=== PATIENT | male | born 1975 | race Caucasian/White ===

== ENCOUNTER 2016-09-19 23:17 | Emergency (ER) | payer MEDICAID ==
[2016-09-19 23:25] VITALS: BP 157/80
[2016-09-20 00:36] LABS: CHLORIDE,CL 102 mmol/L (101-111); SODIUM,NA 135 mmol/L (135-145)
[2016-09-20] MEDS ORDERED: Ketorolac 30 MG/ML SDV IVPUSH ONE (01:00)
[2016-09-20] MEDS ORDERED: Sodium Chloride 0.9% 1,000 ML IV ONE (01:00)
[2016-09-20] MEDS ORDERED: Ondansetron 4 MG/2 ML SDV IV ONE (01:01)
[2016-09-20] MEDS ORDERED: diphenhydrAMINE 50 MG/ML SDV IVPUSH ONE (01:01)
--- NOTE | 2016-09-20 02:14 | EDM.PDOC ---
ED HPI HEADACHE COMPLAINT - General Chief Complaint: Headache Stated Complaint: HEADACHE W/SHARP PAIN BACK OF HEAD 1WEEK+ Time Seen by Provider: 09/19/16 23:30 Source of Information: Reports: Patient History Limitations: Reports: No limitations - History of Present Illness INITIAL COMMENTS - FREE TEXT/NARRATIVE: c/o headache to left side of head for one week, sensitive to light vision blurry at times, watching tv make headache worse, pain to left side of head , sensitive to touch. No other symptoms Methtrexate decreased one -2 months ago and Humira started at same time Descrobes pain present most of time and sharp stabbing at times. - Related Data Allergies/ADRs: Allergies Allergy/AdvReac Type Severity Reaction Status Date / Time No Known Allergies Allergy Verified 06/18/16 19:01 Home Meds: Home Meds Adalimumab [Humira] 10 mg SQ 06/18/16 [History] Methotrexate 12.5 mg PO WEEKLY 06/18/16 [History] Past Medical History - Past Health History Medical/Surgical History: Denies Medical/Surgical History Genitourinary History: Reports: None Musculoskeletal History: Reports: None Neurological History: Reports: None Psychiatric History: Reports: None Endocrine/Metabolic History: Reports: None Dermatologic History: Reports: Psoriasis - Infectious Disease History Infectious Disease History: Reports: Chicken pox - Past Surgical History GI Surgical History: Reports: Appendectomy Male Surgical History: Reports: None Musculoskeletal Surgical History: Reports: Other (see below) Other Musculoskeletal Surgeries/Procedures:: knee surgery Social & Family History - Family History Family Medical History: Noncontributory - Tobacco Use Smoking Status *Q: Never Smoker Second Hand Smoke Exposure: No - Caffeine Use Caffeine Use: Reports: None - Alcohol Use Days Per Week of Alcohol Use: 0 Number of Drinks Per Day: 4 Total Drinks Per Week: 0 - Recreational Drug Use Recreational Drug Use: No ED ROS GENERAL - Review of Systems Review Of Systems: See Below Constitutional: Reports: no symptoms HEENT: Reports: Vision change (blurry at times with headache) Respiratory: Reports: No Symptoms Cardiovascular: Reports: No symptoms Endocrine: Reports: no symptoms GI/Abdominal: Reports: No symptoms Musculoskeletal: Reports: no symptoms Skin: Reports: no symptoms Neurological: Reports: Dizziness, Headache. Denies: Confusion, Numbness, Tremors, Trouble Speaking, Difficulty Walking, Weakness, Change in Speech Psychiatric: Reports: No symptoms - Physical Exam Exam: See Below Exam Limited By: No limitations General Appearance: alert, anxious, mild distress, obese Eye Exam: bilateral eye: EOMI, PERRL, vision changes Ears: normal external exam, normal canal, hearing grossly normal, normal TMs Nose: normal inspection. No: nasal drainage Throat/Mouth: Normal inspection Head Exam: atraumatic, normocephalic, scalp tenderness (left posterior parietal) . No: facial tenderness, sinus tenderness Neck: normal inspection, supple, non-tender, full range of motion. No: lymphadenopathy (L), lymphadenopathy (R) Respiratory/Chest: no respiratory distress, lungs clear, normal breath sounds Cardiovascular: normal peripheral pulses, regular rate, rhythm GI/Abdominal: normal bowel sounds, soft Neuro Exam (Abbreviated): alert, oriented, CN II-XII intact, normal cognition, no motor/sensory deficits Back Exam: full range of motion Extremities: normal inspection, normal range of motion Psychiatric: anxious Skin Exam: Warm, Dry, Intact, Rash (psoriasis plaques ) Course - Vital Signs Last Recorded V/S: Last Vital Signs Temp 96.4 F 09/19/16 23:22 Pulse 69 09/19/16 23:22 Resp 16 09/19/16 23:22 BP 157/80 H 09/19/16 23:22 Pulse Ox 94 L 09/19/16 23:22 - Orders/Labs/Meds Labs: Laboratory Tests 09/19/16 09/19/16 09/19/16 Range/Units 00:12 00:12 00:12 WBC 11.1 H (5.0-10.0) 10^3/uL RBC 4.31 L (4.6-6.2) 10^6/uL Hgb 14.6 (14.0-18.0) g/dL Hct 42.9 (40.0-54.0) % MCV 99.5 (80-100) fL MCH 33.9 (27.0-34.0) pg MCHC 34.0 (33.0-35.0) g/dL Plt Count 228 (150-450) 10^3/uL Neut % (Auto) 66.4 (42.2-75.2) % Lymph % (Auto) 21.7 (20.5-50.1) % [place] % (Auto) 8.8 H (2-8) % Eos % (Auto) 2.7 (1.0-3.0) % Baso % (Auto) 0.4 (0.0-1.0) % Sodium 135 (135-145) mmol/L Potassium 3.3 L (3.6-5.0) mmol/L Chloride 102 (101-111) mmol/L Carbon Dioxide 28.0 (21.0-31.0) mmol/L Anion Gap 8.3 BUN 14 (7-18) mg/dL Creatinine 0.9 (0.6-1.3) mg/dL Est Cr Clr Drug Dosing 113.78 mL/min Estimated GFR (MDRD) > 60 BUN/Creatinine Ratio 15.55 Glucose 140 H (74-105) mg/dL Calcium 8.5 (8.4-10.2) mg/dl Total Bilirubin 0.7 (0.2-1.0) mg/dL AST 27 (10-42) IU/L ALT 36 (10-60) IU/L Alkaline Phosphatase 51 (42-121) IU/L C-Reactive Protein 1.4 H (0.0-1.3) mg/dL Total Protein 7.2 (6.7-8.2) g/dl Albumin 3.8 (3.2-5.5) g/dl Globulin 3.4 Albumin/Globulin Ratio 1.12 Meds: Medications Discontinued Medications Generic Name Dose Route Start Last Admin Trade Name Freq PRN Reason Stop Dose Admin Diphenhydramine HCl 25 mg 09/20/16 01:01 09/20/16 01:20 Benadryl IVPUSH 09/20/16 01:02 25 mg ONETIME ONE Administration Sodium Chloride 1,000 mls @ 999 mls/hr 09/20/16 01:00 09/20/16 01:17 Normal Saline IV 09/20/16 02:00 999 mls/hr .BOLUS ONE Administration Ketorolac Tromethamine 30 mg 09/20/16 01:00 09/20/16 01:22 Toradol IVPUSH 09/20/16 01:01 30 mg ONETIME ONE Administration Ondansetron HCl 4 mg 09/20/16 01:01 09/20/16 01:17 Zofran IV 09/20/16 01:02 4 mg ONETIME ONE Administration - Re-Assessments/Exams Free Text/Narrative Re-Assessment/Exam: 09/20/16 03:12 H/A pain relieved with medications Departure - Departure Time of Disposition: 02:01 Disposition: Home, Self-Care 01 Condition: good Clinical Impression: Headache Qualifiers: Headache type: unspecified Headache chronicity pattern: acute headache Intractability: not intractable Qualified Code(s): R51 - Headache Instructions: General Headache Without Cause, [id number] Forms: ED Department Discharge Additional Instructions: increase fluids rest today tylenol 650mg every 4 hours as needed follow up with PCP if headache returns
== END 2016-09-20 02:07 | disposition home or self-care (01) ==
LOC: DL.ED 23:17
DX: R51 Headache (principal); L40.0 Psoriasis vulgaris; Z90.49 Acquired absence of other specified parts of digestive tract
CPT/HCPCS: 36415; 70450; 80053; 85025; 86140; 96361; 96374; 96375; 99284; J1200; J1885; J2405; J7030

== ENCOUNTER 2017-05-09 00:40 | Emergency (ER) | payer MEDICAID ==
[2017-05-09 00:49] VITALS: BP 149/77
[2017-05-09] MEDS ORDERED: Ibuprofen 600 MG Tab PO ONE (01:08)
--- NOTE | 2017-05-09 01:08 | EDM.PDOC ---
ED HPI GENERAL MEDICAL PROBLEM - General Chief Complaint: Skin Complaint Stated Complaint: MAY NEED STITCHES [id number] Time Seen by Provider: 05/09/17 00:50 Source of Information: Reports: Patient History Limitations: Reports: No Limitations - History of Present Illness INITIAL COMMENTS - FREE TEXT/NARRATIVE: C/o cut to right hand that continues to bleed after one hour. Reports breaking up two indoor family cats that were fighting and scratched on back and side of right hand. No prior hx of skin infections. 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(s) Right Hand Pain Score (Numeric/FACES): 10 - Related Data Allergies Allergy/AdvReac Type Severity Reaction Status Date / Time No Known Allergies Allergy Verified 06/18/16 19:01 Home Meds: Home Meds Methotrexate 12.5 mg PO WEEKLY 06/18/16 [History] Secukinumab [Cosentyx Pen (2 Pens)] 1 dose SQ ASDIRECTED 05/09/17 [History] Past Medical History - Past Health History Medical/Surgical History: Denies Medical/Surgical History Genitourinary History: Reports: None Musculoskeletal History: Reports: None Neurological History: Reports: None Psychiatric History: Reports: None Endocrine/Metabolic History: Reports: None Dermatologic History: Reports: Psoriasis - Infectious Disease History Infectious Disease History: Reports: Chicken Pox - Past Surgical History Musculoskeletal Surgical History: Reports: Other (See Below) Social & Family History - Family History Family Medical History: Noncontributory - Tobacco Use Smoking Status *Q: Never Smoker Second Hand Smoke Exposure: No - Caffeine Use Caffeine Use: Reports: None - Alcohol Use Days Per Week of Alcohol Use: 0 Number of Drinks Per Day: 4 Total Drinks Per Week: 0 - Recreational Drug Use Recreational Drug Use: No ED ROS GENERAL - Review of Systems Review Of Systems: ROS reveals no pertinent complaints other than HPI. ED EXAM, SKIN/RASH Exam: See Below Exam Limited By: No Limitations General Appearance: Alert, No Apparent Distress Eye Exam: Bilateral Eye: EOMI Ears: Normal External Exam Nose: Normal Inspection Throat/Mouth: Normal Inspection Head: Atraumatic, Normocephalic Neck: Normal Inspection Respiratory/Chest: No Respiratory Distress, Lungs Clear Cardiovascular: Normal Peripheral Pulses, Regular Rate, Rhythm Extremities: Normal Range of Motion Neurological: Alert, Oriented, Normal Cognition Skin: Warm, Wound/Incision (2 1cm superficial scratches to outer forearm, puncture wound medial between thumb and index finger, 2.5cm superficail scratch to back of hand wrist fold, no active bleeding, 1cm laceration superficial scatch back of hand. ) Course - Vital Signs Last Recorded V/S: Last Vital Signs Temp 97.1 F 05/09/17 00:48 Pulse 71 05/09/17 00:48 Resp 20 05/09/17 00:48 BP 149/77 H 05/09/17 00:48 Pulse Ox 93 L 05/09/17 00:48 - Orders/Labs/Meds Meds: Medications Discontinued Medications Generic Name Dose Route Start Last Admin Trade Name Freq PRN Reason Stop Dose Admin Ibuprofen 600 mg 05/09/17 01:08 05/09/17 01:12 Motrin PO 05/09/17 01:09 600 mg ONETIME ONE Administration - Re-Assessments/Exams Free Text/Narrative Re-Assessment/Exam: 05/09/17 01:30 Wound cleansed, steri strip to larger wound dressed with telfa and kerlix Departure - Departure Time of Disposition: 00:57 Disposition: Home, Self-Care 01 Condition: Good Clinical Impression: Cat scratch of hand Qualifiers: Encounter type: initial encounter Laterality: right Qualified Code(s): S60.511A - Abrasion of right hand, initial encounter - Discharge Information Instructions: Laceration Care, Adult, [id number] Forms: ED Department Discharge Additional Instructions: keep area clean, covered monitor for infection, follow up with primary care if redness, warmth or drainage noted
== END 2017-05-09 01:12 | disposition home or self-care (01) ==
LOC: DL.ED 00:40
DX: S61.411A Laceration without foreign body of right hand, initial encounter (principal); S60.511A Abrasion of right hand, initial encounter; S50.819A Abrasion of unspecified forearm, initial encounter; W55.03XA Scratched by cat, initial encounter
CPT/HCPCS: 99282; A9270

== ENCOUNTER 2017-08-04 17:14 | Emergency (ER) | payer MEDICAID ==
[2017-08-04] MEDS: Sodium Chloride 0.9% 10 ML Syringe FLUSH PRN (17:47)
[2017-08-04] MEDS: Albuterol 0.083% 2.5 MG/3 ML Neb Soln NEB ONE (17:49)
--- NOTE | 2017-08-04 17:55 | EDM.PDOC ---
ED HPI GENERAL MEDICAL PROBLEM - General Chief Complaint: Respiratory Problem Stated Complaint: from the clinic Time Seen by Provider: 08/04/17 17:55 Source of Information: Reports: Patient, Provider, RN, RN Notes Reviewed, Other (Clinic provider) History Limitations: Reports: No Limitations - History of Present Illness INITIAL COMMENTS - FREE TEXT/NARRATIVE: Pt presents to the ER from the [facility], with provider CHAN Epperson. Patient is hand carrying labs that were completed today. Pt states he began feeling dizzy, cough, and chest pain with cough, SOB on Monday. He states he has progressively been feeling worse since Monday. He admits to hx of asthma. Karyn states the patient's D-Dimer was [phone] at the clinic. Pt states he has been chilling quite a bit and has been running a low grade fever for a few days. Onset: Gradual Location: Reports: Chest, Abdomen Quality: Reports: Sharp, Stabbing Severity: Moderate Improves with: Reports: None Worsens with: Reports: Movement Associated Symptoms: Reports: Chest Pain (with cough), Cough, Fever/Chills, Headaches, Nausea/Vomiting, Shortness of Breath Right Chest Pain Score (Numeric/FACES): 5 - Related Data Allergies Allergy/AdvReac Type Severity Reaction Status Date / Time No Known Allergies Allergy Verified 06/18/16 19:01 Home Meds: Home Meds Methotrexate 12.5 mg PO WEEKLY 06/18/16 [History] Secukinumab [Cosentyx Pen (2 Pens)] 1 dose SQ ASDIRECTED 05/09/17 [History] Albuterol [Proair HFA] 2 puff INH Q6HR PRN 08/04/17 [History] Fluticasone/Salmeterol [Advair 250-50 Diskus] 2 puff INH DAILY 08/04/17 [History ] Folic Acid [Folic Acid] 1 tab PO DAILY 08/04/17 [History] Omeprazole [Omeprazole] 1 tab PO DAILY 08/04/17 [History] Past Medical History - Past Health History Medical/Surgical History: Denies Medical/Surgical History HEENT History: Reports: None Cardiovascular History: Reports: None Respiratory History: Reports: Asthma, Sleep Apnea Gastrointestinal History: Reports: GERD Genitourinary History: Reports: None Musculoskeletal History: Reports: None Neurological History: Reports: Concussion Psychiatric History: Reports: None Endocrine/Metabolic History: Reports: None Hematologic History: Reports: None Immunologic History: Reports: None Oncologic (Cancer) History: Reports: None Dermatologic History: Reports: Psoriasis - Infectious Disease History Infectious Disease History: Reports: Chicken Pox - Past Surgical History Cardiovascular Surgical History: Reports: None GI Surgical History: Reports: Appendectomy, Hernia Repair/Other Musculoskeletal Surgical History: Reports: Arthroscopic Knee Social & Family History - Family History Family Medical History: Noncontributory - Tobacco Use Smoking Status *Q: Never Smoker Second Hand Smoke Exposure: No - Caffeine Use Caffeine Use: Reports: None - Alcohol Use Days Per Week of Alcohol Use: 0 Number of Drinks Per Day: 4 Total Drinks Per Week: 0 - Recreational Drug Use Recreational Drug Use: No ED ROS GENERAL - Review of Systems Review Of Systems: ROS reveals no pertinent complaints other than HPI. ED EXAM, GENERAL - Physical Exam Exam: See Below Exam Limited By: No Limitations General Appearance: Alert, WD/WN, Mild Distress Eye Exam: Bilateral Eye: EOMI, Normal Inspection, PERRL Ears: Normal External Exam, Hearing Grossly Normal Nose: Normal Inspection Throat/Mouth: Normal Inspection, Normal Voice, No Airway Compromise Head: Atraumatic, Normocephalic Neck: Normal Inspection, Supple, Non-Tender, Full Range of Motion Respiratory/Chest: No Respiratory Distress, No Accessory Muscle Use, Decreased Breath Sounds, Wheezing, Other (pain in chest with cough) Cardiovascular: Normal Peripheral Pulses, Regular Rate, Rhythm, No Edema, No Gallop, No JVD, No Murmur, No Rub Peripheral Pulses: 2+: Radial (L), Radial (R) GI/Abdominal: Normal Bowel Sounds, Soft, Non-Tender, No Distention (Male) Exam: Deferred Rectal (Males) Exam: Deferred Back Exam: Normal Inspection, Full Range of Motion Extremities: Normal Inspection, Normal Range of Motion, Non-Tender, No Pedal Edema, Normal Capillary Refill Neurological: Alert, Oriented, CN II-XII Intact, Normal Cognition, Normal Gait, Normal Reflexes, No Motor/Sensory Deficits Psychiatric: Normal Affect, Normal Mood Skin Exam: Warm, Dry, Intact, Normal Color, No Rash Lymphatic: No Adenopathy EKG INTERPRETATION EKG Date: 08/04/17 Time: 17:36 Rhythm: NSR Rate (Beats/Min): 72 [place]: Normal P-Wave: Present QRS: Normal ST-T: Normal QT: Normal Comparison: NA - No Prior EKG Course - Vital Signs Last Recorded V/S: Last Vital Signs Temp Pulse 70 08/04/17 17:49 Resp BP Pulse Ox 97 08/04/17 17:37 - Orders/Labs/Meds Orders: Active Orders 24 hr Category Date Time Status EKG Documentation Completion [RC] STAT Care 08/04/17 17:19 Active Peripheral IV Care [RC] . DIRECTED Care 08/04/17 17:28 Active RT Aerosol Therapy [RC] ASDIRECTED Care 08/04/17 17:37 Active Chest w Cont [CT] Urgent Exams 08/04/17 17:26 Taken Sodium Chloride 0.9% [Saline Flush] Med 08/04/17 17:28 Active 10 ml FLUSH ASDIRECTED PRN Peripheral IV Insertion Adult [OM.PC] Stat Oth 08/04/17 17:28 Ordered Medication Orders Sodium Chloride (Saline Flush) 10 ml FLUSH ASDIRECTED PRN PRN Reason: Keep Vein Open Last Admin: 08/04/17 17:47 Dose: 10 ml Labs: Laboratory Tests 08/04/17 08/04/17 Range/Units 20:00 20:23 Amylase 64 (28-100) U/L Lipase 22 (22-51) U/L Urine Color Dark yellow (YELLOW) Urine Appearance Clear (CLEAR) Urine pH 5.5 (5.0-9.0) Ur Specific [place] 1.025 (1.005-1.030) Urine Protein Trace H (NEGATIVE) Urine Glucose (UA) Negative (NEGATIVE) Urine Ketones Negative (NEGATIVE) Urine Occult Blood Negative (NEGATIVE) Urine Nitrite Negative (NEGATIVE) Urine Bilirubin Negative (NEGATIVE) Urine Urobilinogen 1.0 (0.2-1.0) mg/dL Ur Leukocyte Esterase Negative (NEGATIVE) Urine RBC 0-5 /HPF Urine WBC 0-5 (0-5/HPF) /HPF Ur Epithelial Cells Few /HPF Urine Bacteria Few (0-FEW/HPF) /HPF Urine Mucus Moderate H /LPF Meds: Medications Generic Name Dose Route Start Last Admin Trade Name Freq PRN Reason Stop Dose Admin Sodium Chloride 10 ml 08/04/17 17:28 08/04/17 17:47 Saline Flush FLUSH 10 ml ASDIRECTED PRN Administration Keep Vein Open Discontinued Medications Generic Name Dose Route Start Last Admin Trade Name Freq PRN Reason Stop Dose Admin Albuterol 2.5 mg 08/04/17 17:37 08/04/17 17:49 Proventil Neb Soln NEB 08/04/17 17:38 2.5 mg ONETIME ONE Administration Sodium Chloride 1,000 mls @ 999 mls/hr 08/04/17 17:38 08/04/17 18:32 Normal Saline IV 08/04/17 18:38 999 mls/hr .BOLUS ONE Administration Sodium Chloride 1,000 mls @ 999 mls/hr 08/04/17 19:37 08/04/17 19:41 Normal Saline IV 08/04/17 20:37 999 mls/hr .BOLUS ONE Administration Iopamidol 100 ml 08/04/17 17:27 08/04/17 18:34 Isovue-370 (76%) IVPUSH 08/04/17 17:28 83 ml ONETIME ONE Administration Ondansetron HCl 4 mg 08/04/17 19:43 08/04/17 20:10 Zofran IV 08/04/17 19:44 4 mg ONETIME ONE Administration - Radiology Interpretation Free Text/Narrative:: Chest CT with contrast: No acute cardiopulmonary process. Moderate fatty infiltration of the visualized liver See rad report Departure - Departure Time of Disposition: 21:02 Disposition: Home, Self-Care 01 Condition: Fair Clinical Impression: Upper respiratory infection, viral - Discharge Information Instructions: Shortness of Breath, Adult, [id number], Viral Respiratory Infection, [id number], Upper Respiratory Infection, Adult, [id number] Referrals: Karyn Fairchild [Primary Care Provider] - Forms: ED Department Discharge Additional Instructions: Drink plenty of fluids Follow up with your primary care facility Tylenol or ibuprofen as directed for pain - My Orders Last 24 Hours: My Active Orders 08/04/17 17:19 EKG Documentation Completion [RC] STAT 08/04/17 17:26 Chest w Cont [CT] Urgent 08/04/17 17:28 Peripheral IV Care [RC] . DIRECTED Sodium Chloride 0.9% [Saline Flush] 10 ml FLUSH ASDIRECTED PRN Peripheral IV Insertion Adult [OM.PC] Stat 08/04/17 17:37 RT Aerosol Therapy [RC] ASDIRECTED - Assessment/Plan Last 24 Hours: My Active Orders 08/04/17 17:19 EKG Documentation Completion [RC] STAT 08/04/17 17:26 Chest w Cont [CT] Urgent 08/04/17 17:28 Peripheral IV Care [RC] . DIRECTED Sodium Chloride 0.9% [Saline Flush] 10 ml FLUSH ASDIRECTED PRN Peripheral IV Insertion Adult [OM.PC] Stat 08/04/17 17:37 RT Aerosol Therapy [RC] ASDIRECTED
[2017-08-04] MEDS: Sodium Chloride 0.9% 1,000 ML IV ONE ×2 (18:32→19:41)
[2017-08-04] MEDS: Iopamidol 755 Mg/ML 100 ML Bottle IVPUSH ONE (18:34)
[2017-08-04] MEDS: Ondansetron 4 MG/2 ML SDV IV ONE (20:10)
== END 2017-08-04 21:16 | disposition home or self-care (01) ==
LOC: DL.ED 17:14
DX: J06.9 Acute upper respiratory infection, unspecified (principal); Z79.899 Other long term (current) drug therapy
CPT/HCPCS: 36415; 71260; 81001; 82150; 83690; 93005; 94640; 96365; 96366; 96375; 99285; J2405; J7030; J7050; J7620; Q9967

== ENCOUNTER 2018-02-19 22:00 | Emergency (ER) | payer MEDICAID ==
[2018-02-19] MEDS ORDERED: Cyclobenzaprine 10 MG Tab PO ONE (22:01)
[2018-02-19] MEDS ORDERED: Acetaminophen/HYDROcodone 325-10 MG Tab PO ONE (22:01)
[2018-02-19] MEDS ORDERED: HYDROmorphone 1 MG/ML Syringe IVPUSH ONE (22:22)
[2018-02-19] MEDS ORDERED: Ondansetron 4 MG/2 ML SDV IV ONE (22:22)
[2018-02-19] MEDS ORDERED: Iopamidol 612 MG/ML 100 ML Bottle IVPUSH ONE (22:30)
[2018-02-19 22:38] VITALS: BP 142/88
[2018-02-19 22:59] LABS: ANION GAP 12.3; CHLORIDE,CL 100 mmol/L (101-111); SODIUM,NA 140 mmol/L (135-145)
[2018-02-20] MEDS ORDERED: Cyclobenzaprine 10 MG Tab ONE (00:24)
[2018-02-20] MEDS ORDERED: Acetaminophen/HYDROcodone 325-10 MG Tab ONE (00:24)
--- NOTE | 2018-02-20 00:56 | EDM.PDOC ---
ED HPI GENERAL MEDICAL PROBLEM - General Chief Complaint: Back Pain or Injury Stated Complaint: FELL OFF OF A LADDER [id number] Time Seen by Provider: 02/19/18 22:30 Source of Information: Reports: Patient History Limitations: Reports: No Limitations - History of Present Illness INITIAL COMMENTS - FREE TEXT/NARRATIVE: ED ambulatory c/o left rib pain, low back after falling from top of 8 foot ladder [id number]. states fell backwards and to left side, onto wooden steps and broke one with fall. hit forehead on sidewalk no loss of consciousness. Has had no nausea or vomiting, no weakness . Chronic tingling of right hand, unchanged. Left Thoracic Pain Score (Numeric/FACES): 9 - Related Data Allergies Allergy/AdvReac Type Severity Reaction Status Date / Time No Known Allergies Allergy Verified 02/19/18 22:09 Home Meds: Home Meds Methotrexate 12.5 mg PO WEEKLY 06/18/16 [History] Secukinumab [Cosentyx Pen (2 Pens)] 1 dose SQ ASDIRECTED 05/09/17 [History] Albuterol [Proair HFA] 2 puff INH Q6HR PRN 08/04/17 [History] Fluticasone/Salmeterol [Advair 250-50 Diskus] 2 puff INH DAILY 08/04/17 [History ] Folic Acid 1 tab PO DAILY 08/04/17 [History] Omeprazole 1 tab PO DAILY 08/04/17 [History] Sertraline [Zoloft] 50 mg PO DAILY 02/19/18 [History] Past Medical History - Past Health History Medical/Surgical History: Denies Medical/Surgical History HEENT History: Reports: None Cardiovascular History: Reports: None Respiratory History: Reports: Asthma, Sleep Apnea Gastrointestinal History: Reports: GERD Genitourinary History: Reports: None Musculoskeletal History: Reports: None Neurological History: Reports: Concussion Psychiatric History: Reports: None Endocrine/Metabolic History: Reports: None Hematologic History: Reports: None Immunologic History: Reports: None Oncologic (Cancer) History: Reports: None Dermatologic History: Reports: Psoriasis - Infectious Disease History Infectious Disease History: Reports: Chicken Pox - Past Surgical History Cardiovascular Surgical History: Reports: None GI Surgical History: Reports: Appendectomy, Hernia Repair/Other Musculoskeletal Surgical History: Reports: Arthroscopic Knee Social & Family History - Family History Family Medical History: Noncontributory - Tobacco Use Smoking Status *Q: Unknown Ever Smoked - Caffeine Use Caffeine Use: Reports: Soda - Recreational Drug Use Recreational Drug Use: No ED ROS GENERAL - Review of Systems Review Of Systems: See Below Constitutional: Reports: No Symptoms HEENT: Reports: No Symptoms Respiratory: Reports: Other (pain left ribs hurts to take deep breath) Cardiovascular: Reports: No Symptoms GI/Abdominal: Reports: Abdominal Pain (upper left below ribs) : Reports: No Symptoms Musculoskeletal: Reports: Neck Pain, Back Pain Skin: Reports: Bruising (inner right upper arm) Neurological: Reports: No Symptoms ED EXAM,LOWER BACK PAIN/INJURY - Physical Exam Exam: See Below Exam Limited By: No Limitations General Appearance: Alert, Mild Distress, Obese (morbid) Eye Exam: Bilateral Eye: EOMI, PERRL Ears: Normal External Exam, Normal TMs Nose: Normal Inspection Throat/Mouth: Normal Inspection, Normal Lips, Normal Voice, No Airway Compromise Head: Atraumatic, Normocephalic Neck: Full Range of Motion, Tender Lateral (right) Respiratory/Chest: No Respiratory Distress, Lungs Clear, Other (left lower rib pain with alpation and movment) Cardiovascular: Normal Peripheral Pulses, Regular Rate, Rhythm GI/Abdominal: Normal Bowel Sounds, Soft, Non-Tender Back Exam: Muscle Spasm, Paraspinal Tenderness (lumbar), Vertebral Tenderness ( low thoracic mid lumbar) Extremities: Normal Inspection, Normal Capillary Refill Neurological: Alert, Normal Mood/Affect, CN II-XII Intact, Normal Plantar Flexion, No Motor/Sensory Deficits, Oriented x 3 Psychiatric: Normal Affect Skin Exam: Warm, Dry, Intact, Ecchymosis (3x1cm bruising right upper inner arm) Course - Vital Signs Last Recorded V/S: Last Vital Signs Temp 98.2 F 02/19/18 22:30 Pulse 64 02/19/18 22:30 Resp 20 02/19/18 22:30 BP 142/88 H 02/19/18 22:30 Pulse Ox 94 L 02/19/18 22:30 - Orders/Labs/Meds Orders: Active Orders 24 hr Category Date Time Status UA W/MICROSCOPIC [URIN] Stat Lab 02/20/18 00:20 Ordered Labs: Laboratory Tests 02/19/18 02/19/18 02/19/18 Range/Units 22:25 22:25 22:25 WBC 9.3 (5.0-10.0) 10^3/uL RBC 4.43 L (4.6-6.2) 10^6/uL Hgb 14.6 (14.0-18.0) g/dL Hct 44.1 (40.0-54.0) % MCV 99.5 (80-100) fL MCH 33.0 (27.0-34.0) pg MCHC 33.1 (33.0-35.0) g/dL Plt Count 243 (150-450) 10^3/uL Neut % (Auto) 57.3 (42.2-75.2) % Lymph % (Auto) 26.7 (20.5-50.1) % [place] % (Auto) 10.0 H (2-8) % Eos % (Auto) 5.6 H (1.0-3.0) % Baso % (Auto) 0.4 (0.0-1.0) % PT 10.0 (9.0-12.0) SEC INR 1.0 (0.9-1.2) Sodium 140 (135-145) mmol/L Potassium 4.3 (3.6-5.0) mmol/L Chloride 100 L (101-111) mmol/L Carbon Dioxide 32.0 H (21.0-31.0) mmol/L Anion Gap 12.3 BUN 14 (7-18) mg/dL Creatinine 0.9 (0.6-1.3) mg/dL Est Cr Clr Drug Dosing 112.65 mL/min Estimated GFR (MDRD) > 60 BUN/Creatinine Ratio 15.55 Glucose 92 (74-105) mg/dL Calcium 8.8 (8.4-10.2) mg/dl Total Bilirubin 0.9 (0.2-1.0) mg/dL AST 32 (10-42) IU/L ALT 44 (10-60) IU/L Alkaline Phosphatase 62 (42-121) IU/L Total Protein 7.9 (6.7-8.2) g/dl Albumin 4.1 (3.2-5.5) g/dl Globulin 3.8 Albumin/Globulin Ratio 1.08 Amylase 70 (28-100) U/L Lipase 30 (22-51) U/L Urine Color (YELLOW) Urine Appearance (CLEAR) Urine pH (5.0-9.0) Ur Specific [place] (1.005-1.030) Urine Protein (NEGATIVE) Urine Glucose (UA) (NEGATIVE) Urine Ketones (NEGATIVE) Urine Occult Blood (NEGATIVE) Urine Nitrite (NEGATIVE) Urine Bilirubin (NEGATIVE) Urine Urobilinogen (0.2-1.0) mg/dL Ur Leukocyte Esterase (NEGATIVE) Urine RBC /HPF Urine WBC (0-5/HPF) /HPF Ur Epithelial Cells /HPF Calcium Oxalate Crystal /HPF Amorphous Sediment (0/HPF) /HPF Urine Bacteria (0-FEW/HPF) /HPF Urine Mucus /LPF 02/20/18 Range/Units 00:20 WBC (5.0-10.0) 10^3/uL RBC (4.6-6.2) 10^6/uL Hgb (14.0-18.0) g/dL Hct (40.0-54.0) % MCV (80-100) fL MCH (27.0-34.0) pg MCHC (33.0-35.0) g/dL Plt Count (150-450) 10^3/uL Neut % (Auto) (42.2-75.2) % Lymph % (Auto) (20.5-50.1) % [place] % (Auto) (2-8) % Eos % (Auto) (1.0-3.0) % Baso % (Auto) (0.0-1.0) % PT (9.0-12.0) SEC INR (0.9-1.2) Sodium (135-145) mmol/L Potassium (3.6-5.0) mmol/L Chloride (101-111) mmol/L Carbon Dioxide (21.0-31.0) mmol/L Anion Gap BUN (7-18) mg/dL Creatinine (0.6-1.3) mg/dL Est Cr Clr Drug Dosing mL/min Estimated GFR (MDRD) BUN/Creatinine Ratio Glucose (74-105) mg/dL Calcium (8.4-10.2) mg/dl Total Bilirubin (0.2-1.0) mg/dL AST (10-42) IU/L ALT (10-60) IU/L Alkaline Phosphatase (42-121) IU/L Total Protein (6.7-8.2) g/dl Albumin (3.2-5.5) g/dl Globulin Albumin/Globulin Ratio Amylase (28-100) U/L Lipase (22-51) U/L Urine Color Yellow (YELLOW) Urine Appearance Clear (CLEAR) Urine pH 5.0 (5.0-9.0) Ur Specific [place] 1.010 (1.005-1.030) Urine Protein Negative (NEGATIVE) Urine Glucose (UA) Negative (NEGATIVE) Urine Ketones Negative (NEGATIVE) Urine Occult Blood Negative (NEGATIVE) Urine Nitrite Negative (NEGATIVE) Urine Bilirubin Negative (NEGATIVE) Urine Urobilinogen 0.2 (0.2-1.0) mg/dL Ur Leukocyte Esterase Negative (NEGATIVE) Urine RBC 0-5 /HPF Urine WBC 0-5 (0-5/HPF) /HPF Ur Epithelial Cells Rare /HPF Calcium Oxalate Crystal Rare /HPF Amorphous Sediment Rare (0/HPF) /HPF Urine Bacteria Rare (0-FEW/HPF) /HPF Urine Mucus Rare /LPF Meds: Medications Discontinued Medications Generic Name Dose Route Start Last Admin Trade Name Alonzo PRN Reason Stop Dose Admin Hydrocodone Bitart/Acetaminophen Confirm 02/20/18 00:24 [place] 325-10 Mg Administered 02/20/18 00:25 Dose 2 tab .ROUTE .STK-MED ONE Cyclobenzaprine HCl Confirm 02/20/18 00:24 Flexeril Administered 02/20/18 00:25 Dose 10 mg .ROUTE .STK-MED ONE Hydromorphone HCl 1 mg 02/19/18 22:22 02/19/18 23:06 Dilaudid IVPUSH 02/19/18 22:23 1 mg ONETIME ONE Administration Iopamidol 100 ml 02/19/18 22:30 02/19/18 23:36 Isovue-300 (61%) IVPUSH 02/19/18 22:31 100 ml ONETIME ONE Administration Ondansetron HCl 4 mg 02/19/18 22:22 02/19/18 23:05 Zofran IV 02/19/18 22:23 4 mg ONETIME ONE Administration - Radiology Interpretation Free Text/Narrative:: CT chest abdomen pelvis, thoracic, cervical and lumbar negative for acute findings. No fractures or dislocations Departure - Departure Time of Disposition: 00:54 Disposition: Home, Self-Care 01 Condition: Good Clinical Impression: Rib pain on left side, Back pain due to injury Contusion Qualifiers: Encounter type: initial encounter Contusion area: upper arm Laterality: right Qualified Code(s): S40.021A - Contusion of right upper arm, initial encounter Fall from ladder Qualifiers: Encounter type: initial encounter Qualified Code(s): W11.XXXA - Fall on and from ladder, initial encounter - Discharge Information Instructions: Back Pain, Adult, [id number] Forms: ED Department Discharge Additional Instructions: incentive spirometer every 2 hours while awake rest today flexeril 10mg every 8 hours as needed for spasm hydrocodone 10/325 one every 6 hours as needed for severe pain ibuprofen 600mg every 6 hours as needed for moderate pain follow up if weakness, difficulty breathing, dizzainess or uncontrolled pain - My Orders Last 24 Hours: My Active Orders 02/20/18 00:20 UA W/MICROSCOPIC [URIN] Stat - Assessment/Plan Last 24 Hours: My Active Orders 02/20/18 00:20 UA W/MICROSCOPIC [URIN] Stat
== END 2018-02-20 01:15 | disposition home or self-care (01) ==
LOC: DL.ED 22:00
DX: S40.021A Contusion of right upper arm, initial encounter (principal); R07.81 Pleurodynia; M54.5 Low back pain; K21.9 Gastro-esophageal reflux disease without esophagitis; Z79.899 Other long term (current) drug therapy; W11.XXXA Fall on and from ladder, initial encounter
CPT/HCPCS: 36415; 71260; 72125; 72128; 72131; 74177; 80053; 81001; 82150; 83690; 85025; 85610; 96374; 96375; 99284; J1170; J2405; Q9967; A9270-GY

== ENCOUNTER 2019-02-07 06:38 | Day surgery (SDC) | payer MEDICAID ==
[~2019-02-07 06:38] MED LIST: Dextrose 5%-0.45% NaCl 1,000 ML IV SCH; Midazolam 1 MG/ML 2 ML SDV ONE; Sodium Chloride 0.9% 10 ML Syringe FLUSH PRN; fentaNYL 100 MCG/2 ML SDV ONE
[2019-02-07] MEDS ORDERED: fentaNYL 100 MCG/2 ML SDV IV ONE ×3 (06:39→07:44)
[2019-02-07] MEDS ORDERED: Midazolam 1 MG/ML 2 ML SDV IV ONE ×3 (06:39→07:45)
[2019-02-07 11:27] VITALS: BP 150/86
--- NOTE | 2019-02-07 13:36 | OR ---
DATE: 02/07/2019 PROCEDURE PERFORMED: Esophagogastroduodenoscopy and multiple pinch biopsies. INSTRUMENT USED: [id number] Olympus video panendoscope. PREMEDICATIONS: No oral or topical anesthesia used. Fentanyl 100 mcg intravenous, Versed 2 mg intravenous. Nasal O2 cannula. The procedure was done under pulse oximetry, BP recording, and flame channeler. INDICATION: The patient with long-standing heartburn and dependent on PPI. Esophagogastroduodenoscopy is performed for detection of any active erosive lesions, Mitchell esophagus and/or malignancy also under consideration, H. pylori status to be determined, endoscopic hemostasis therapy if needed. PROCEDURE IN DETAIL: The scope was passed with ease. Adequate visualization of the esophagus was made from proximal to distal areas. No upper esophageal lesions identified. No distal esophageal stricture, no uphill or downhill esophageal varices. No Blaire-Frazier tear. No evidence of erosive esophagitis by [place] criteria. No esophageal polyp or tumor mass identified. Z-line was seen at around 40 cm distal to the oral verge, configuration consistent with grade 1 by ZAP classification. No proximal gastric varices noted. Gastric fundus examination by retroflexion showed no polypoid lesions. No gastric ulcer, malignant mass, or vascular ectasia identified. Duodenal bulb showed no ulcer. Visualized second part of the duodenum was unremarkable. Multiple pinch biopsies were taken from the gastric antrum and proximal body and sent for PyloriTek test for H. pylori, and if negative in an hour, the tissue is to be sent for histopathology. No bleeding was noted from any of the visualized areas at the completion of examination. Photographs were taken of the duodenal bulb, gastric antrum, fundus, and distal esophagus. IMPRESSION: Normal study. The patient tolerated the procedure well. [facility] /[id number]
== END 2019-02-07 09:57 | disposition home or self-care (01) ==
LOC: DL.ENDO 06:38
PROVIDERS: ATTEND Internal Medicine Gastroenterology
DX: K29.50 Unspecified chronic gastritis without bleeding (principal); R12 Heartburn; E66.01 Morbid (severe) obesity due to excess calories; G47.33 Obstructive sleep apnea (adult) (pediatric); L40.9 Psoriasis, unspecified; Z87.891 Personal history of nicotine dependence; Z68.43 Body mass index [BMI] 50.0-59.9, adult
CPT/HCPCS: 43239; 87077; J2250; J3010; J7042

== ENCOUNTER 2020-10-26 22:13 | Emergency (ER) | payer MEDICAID ==
[2020-10-26] MEDS ORDERED: Aspirin 81 MG Tab.Chew PO ONE (22:20)
[2020-10-26] MEDS ORDERED: Morphine 4 MG/ML Syringe IM ONE (23:00)
[2020-10-26] MEDS ORDERED: Morphine 2 MG/ML SYRINGE IVPUSH ONE (23:02)
[2020-10-26] MEDS ORDERED: Ondansetron 4 MG/2 ML SDV IVPUSH ONE (23:03)
[2020-10-26 23:06] LABS: ANION GAP 10.9 mEq/L (7-13); CHLORIDE,CL 100 mmol/L (98-107); SODIUM,NA 137 mmol/L (136-145)
--- NOTE | 2020-10-26 23:20 | CR ---
PROCEDURE INFORMATION: Exam: XR Chest Exam date and time: 10/26/2020 10:42 PM Age: 45 years old Clinical indication: Pain; Left-sided; Additional info: Chest pain TECHNIQUE: Imaging protocol: XR of the chest. Views: 1 view. COMPARISON: CT Chest Abdomen Pelvis w Cont 02/19/2018 10:40 PM FINDINGS: Lungs: Unremarkable. No consolidation. Pleural spaces: Unremarkable. No pleural effusion. No pneumothorax. Heart/Mediastinum: Unremarkable. No cardiomegaly. Bones/joints: Unremarkable. IMPRESSION: No acute findings.
[2020-10-26] MEDS ORDERED: Ketorolac 30 MG/ML SDV IVPUSH ONE (23:56)
[2020-10-27 01:49] VITALS: BP 133/64; PULSE 71
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
== END 2020-10-27 03:46 | disposition home or self-care (01) ==
LOC: DL.ED 22:13
DX: R07.89 Other chest pain (principal); R73.9 Hyperglycemia, unspecified; E66.9 Obesity, unspecified; Z68.43 Body mass index [BMI] 50.0-59.9, adult
CPT/HCPCS: 36415; 71045; 80053; 83735; 83880; 84484; 85025; 85379; 85610; 93005; 96374; 96375; 99283; 99285-25; A9270-GY; J1885; J2270; J2405

== ENCOUNTER 2020-11-03 16:30 | Emergency (ER) | payer MEDICAID ==
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
--- NOTE | 2020-11-03 17:17 | CR ---
EXAMINATION: Knee 1V or 2V Rt SEX: Male AGE: 45 years CLINICAL HISTORY: 45-year-old male 5 foot fall from ladder. Right knee pain. Interpretation: Early arthritic degenerative changes i.e. reactive sclerosis and tiny spur formation patellofemoral surface of patella and tibial plateau. No joint effusion, right knee fracture, dislocation or radiopaque loose joint body. No foreign bodies. CONCLUSION: Osteoarthritis. No fractures.
--- NOTE | 2020-11-03 17:25 | CR ---
EXAMINATION: Shoulder Comp Lt SEX: Male AGE: 45 years CLINICAL HISTORY: 45-year-old obese male injured in fall from ladder (5 feet). Left shoulder pain. Interpretation: (Technically difficult exam due to patient body habitus and portable digital techniques) No sign of left shoulder fracture. No gross glenohumeral dislocation or acromioclavicular separation, however, recommend patient be reexamined in the radiology department. No foreign bodies.
--- NOTE | 2020-11-03 18:48 | CT ---
PROCEDURE INFORMATION: Exam: CT Left Upper Extremity Without Contrast, Shoulder Exam date and time: 11/03/2020 6:18 PM Age: 45 years old Clinical indication: Injury or trauma; Fall; Blunt trauma (contusions or hematomas); Shoulder; Left; Additional info: Left shoulder pain TECHNIQUE: Imaging protocol: CT of the Left upper extremity without contrast was performed. Exam focused on the shoulder. Radiation optimization: All CT scans at this facility use at least one of these dose optimization techniques: automated exposure control; mA and/or kV adjustment per patient size (includes targeted exams where dose is matched to clinical indication); or iterative reconstruction. COMPARISON: CR Shoulder Comp Lt 11/03/2020 4:53 PM FINDINGS: Bones/joints: Minimally displaced linear fracture to the humeral head, involving predominantly the greater tuberosity. No other acutely displaced fractures are identified. There is no evidence of dislocation. No aggressive osseous lesions. Visualized chest is unremarkable. Soft tissues: Mild soft tissue swelling around the left shoulder. IMPRESSION: Minimally displaced linear/comminuted fracture to the humeral head, involving predominantly the greater tuberosity.
[2020-11-03 18:56] VITALS: BP 126/64; PULSE 70
== END 2020-11-03 19:22 | disposition home or self-care (01) ==
LOC: DL.ED 16:30
DX: S42.292A Other displaced fracture of upper end of left humerus, initial encounter for closed fracture (principal); S80.01XA Contusion of right knee, initial encounter; E66.9 Obesity, unspecified; Z68.43 Body mass index [BMI] 50.0-59.9, adult; W11.XXXA Fall on and from ladder, initial encounter
CPT/HCPCS: 73030-LT; 73200-LT; 73560-RT; 99284-25

== ENCOUNTER 2021-02-17 15:21 | Emergency (ER) | payer MEDICAID ==
[2021-02-17 15:48] VITALS: BP 144/79; PULSE 63
[2021-02-17] MEDS ORDERED: Sodium Chloride 0.9% 10 ML Syringe FLUSH PRN (15:52)
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
[2021-02-17 16:34] LABS: HEMOGLOBIN A1C 10.8 % (<5.7)
[2021-02-17 16:37] LABS: AMPHETAMINES,URINE NEGATIVE (NEGATIVE); BARBITURATES,URINE NEGATIVE (NEGATIVE); BENZODIAZEPINE,URINE NEGATIVE (NEGATIVE); MDMA (ECSTASY), URINE NEGATIVE (NEGATIVE); METHADONE,URINE NEGATIVE (NEGATIVE); METHAMPHETAMINES,URINE NEGATIVE (NEGATIVE); OPIATES,URINE NEGATIVE (NEGATIVE); OXYCODONE,URINE NEGATIVE (NEGATIVE); PHENCYCLIDINE,URINE NEGATIVE (NEGATIVE); TCA,URINE NEGATIVE (NEGATIVE)
[2021-02-17 16:43] LABS: ANION GAP 10.2 mEq/L (7-13); CHLORIDE,CL 98 mmol/L (98-107); SODIUM,NA 134 mmol/L (136-145)
[2021-02-17] MEDS ORDERED: metFORMIN 500 MG Tab PO ONE (17:02)
== END 2021-02-17 17:26 | disposition home or self-care (01) ==
LOC: DL.ED 15:21
DX: E11.9 Type 2 diabetes mellitus without complications (principal); E03.9 Hypothyroidism, unspecified; J45.909 Unspecified asthma, uncomplicated; E66.9 Obesity, unspecified; Z68.42 Body mass index [BMI] 45.0-49.9, adult; Z79.899 Other long term (current) drug therapy; Z20.822 Contact with and (suspected) exposure to COVID-19
CPT/HCPCS: 36415; 80053; 80305-QW; 80307; 81003; 82009; 82150; 82947; 83036; 83605; 83690; 83735; 84100; 84443; 84484; 85025; 93005; 99284-25; U0002

== ENCOUNTER 2021-04-10 00:55 | Emergency (ER) | payer MEDICAID ==
[2021-04-10 01:13] VITALS: PULSE 84
[2021-04-10 01:51] VITALS: BP 141/79
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
== END 2021-04-10 02:35 | disposition home or self-care (01) ==
LOC: DL.ED 00:55
DX: S63.641A Sprain of metacarpophalangeal joint of right thumb, initial encounter (principal); I10 Essential (primary) hypertension; J45.909 Unspecified asthma, uncomplicated; E11.9 Type 2 diabetes mellitus without complications; E03.9 Hypothyroidism, unspecified; E66.9 Obesity, unspecified; Z68.42 Body mass index [BMI] 45.0-49.9, adult; Z79.4 Long term (current) use of insulin; Z79.899 Other long term (current) drug therapy; W23.0XXA Caught, crushed, jammed, or pinched between moving objects, initial encounter
CPT/HCPCS: 73130-RT; 99283

== ENCOUNTER 2021-09-21 14:05 | Emergency (ER) | payer BC, MEDICAID ==
[2021-09-21 14:27] VITALS: BP 145/75; PULSE 54
[2021-09-21] MEDS ORDERED: Sodium Chloride 0.9% 10 ML Syringe FLUSH PRN (14:36)
[2021-09-21] MEDS ORDERED: Albuterol/Ipratropium 3.0-0.5 MG/3 ML Neb Soln NEB ONE (14:36)
[2021-09-21] MEDS ORDERED: Benzonatate 100 MG Cap PO ONE (14:36)
[2021-09-21 15:11] LABS: ANION GAP 12.3 mEq/L (7-13); CHLORIDE,CL 103 mmol/L (98-107); SODIUM,NA 141 mmol/L (136-145)
[2021-09-21 15:12] LABS: PTT,PARTIAL THROMBOPLSTIN TIME 25.1 SEC (22.0-34.0)
[2021-09-21 15:18] LABS: CORONAVIRUS COVID-19 NAA NEGATIVE (NEGATIVE); RESPIRATORY SYNCYTIAL VIR NAA NEGATIVE (NEGATIVE)
[2021-09-21] MEDS ORDERED: Iopamidol 612 MG/ML 50 ML SDV IVPUSH ONE (15:41)
[2021-09-21] MEDS ORDERED: Iopamidol 612 MG/ML 100 ML Bottle IVPUSH ONE (15:42)
[2021-09-21] MEDS ORDERED: methylPREDNISolone Sodium Succinate 125 MG/2 ML SDV IVPUSH ONE (17:04)
[2021-09-21] MEDS ORDERED: Codeine/Promethazine 10-6.25 MG/5 ML Syrup 5 ML UD Cup PO ONE (17:05)
== END 2021-09-21 17:18 | disposition home or self-care (01) ==
LOC: DL.ED 14:05
DX: J20.8 Acute bronchitis due to other specified organisms (principal); J45.51 Severe persistent asthma with (acute) exacerbation; R04.2 Hemoptysis; I10 Essential (primary) hypertension; E11.9 Type 2 diabetes mellitus without complications; E66.9 Obesity, unspecified; Z68.44 Body mass index [BMI] 60.0-69.9, adult; Z79.899 Other long term (current) drug therapy; Z20.822 Contact with and (suspected) exposure to COVID-19
CPT/HCPCS: 0241U; 36415; 71260; 80053; 83880; 84484; 85025; 85379; 85610; 85730; 93005; 93010; 96374; 99284; 99285-25; A9270-GY; J2930; J3490; J7620-GY; Q9967

== ENCOUNTER 2022-05-31 21:45 | Emergency (ER) | payer MEDICAID ==
[2022-05-31 22:09] VITALS: BP 163/90; PULSE 69
[2022-05-31] MEDS ORDERED: oxyCODONE 5 MG Tab PO ONE (23:54)
== END 2022-06-01 00:08 | disposition home or self-care (01) ==
LOC: DL.ED 21:45
DX: S32.2XXA Fracture of coccyx, initial encounter for closed fracture (principal); M47.817 Spondylosis without myelopathy or radiculopathy, lumbosacral region; I10 Essential (primary) hypertension; J45.909 Unspecified asthma, uncomplicated; M19.90 Unspecified osteoarthritis, unspecified site; E11.9 Type 2 diabetes mellitus without complications; E03.9 Hypothyroidism, unspecified; E66.9 Obesity, unspecified; Z68.43 Body mass index [BMI] 50.0-59.9, adult; Z79.4 Long term (current) use of insulin; Z79.899 Other long term (current) drug therapy; W10.9XXA Fall (on) (from) unspecified stairs and steps, initial encounter
CPT/HCPCS: 72100; 72220; 99283; A9270-GY

== ENCOUNTER 2023-02-05 23:40 | Emergency (ER) | payer MEDICAID ==
[2023-02-05] MEDS ORDERED: Dexamethasone 4 MG/ML SDV IM ONE (23:51)
[2023-02-05 23:55] VITALS: PULSE 68
== END 2023-02-06 00:03 | disposition home or self-care (01) ==
LOC: DL.ED 23:40
DX: M54.50 Low back pain, unspecified (principal); I10 Essential (primary) hypertension; J45.909 Unspecified asthma, uncomplicated; E03.9 Hypothyroidism, unspecified; E11.9 Type 2 diabetes mellitus without complications; E66.9 Obesity, unspecified; Z68.42 Body mass index [BMI] 45.0-49.9, adult; Z79.84 Long term (current) use of oral hypoglycemic drugs; Z79.4 Long term (current) use of insulin; Z79.899 Other long term (current) drug therapy
CPT/HCPCS: 96372; 99283; J1100

== ENCOUNTER 2023-02-27 00:20 | Emergency (ER) | payer MEDICAID ==
[2023-02-27 00:45] VITALS: BP 150/89; PULSE 74
== END 2023-02-27 01:30 | disposition home or self-care (01) ==
LOC: DL.ED 00:20
DX: M77.12 Lateral epicondylitis, left elbow (principal); I10 Essential (primary) hypertension; E11.9 Type 2 diabetes mellitus without complications; E03.9 Hypothyroidism, unspecified; E66.9 Obesity, unspecified; J45.909 Unspecified asthma, uncomplicated; Z79.4 Long term (current) use of insulin; Z79.84 Long term (current) use of oral hypoglycemic drugs; Z79.899 Other long term (current) drug therapy; Z68.42 Body mass index [BMI] 45.0-49.9, adult
CPT/HCPCS: 73080-LT; 99283

== ENCOUNTER 2023-03-11 22:16 | Emergency (ER) | payer MEDICAID ==
[2023-03-11 22:53] VITALS: BP 156/90
[2023-03-11] MEDS ORDERED: Lidocaine 1% 5 ML VIAL INJECT ONE (22:57)
[2023-03-11] MEDS ORDERED: Take Home: Sulfamethoxazole/Trimethoprim 800-160 MG Tab, 6 Tab Pack PO ONE (23:29)
[2023-03-11 23:59] VITALS: PULSE 77
== END 2023-03-12 00:05 | disposition home or self-care (01) ==
LOC: DL.ED 22:16
DX: L02.415 Cutaneous abscess of right lower limb (principal); E11.9 Type 2 diabetes mellitus without complications; E66.9 Obesity, unspecified; E03.9 Hypothyroidism, unspecified; I10 Essential (primary) hypertension; J45.909 Unspecified asthma, uncomplicated; Z79.4 Long term (current) use of insulin; Z79.84 Long term (current) use of oral hypoglycemic drugs; Z79.899 Other long term (current) drug therapy
CPT/HCPCS: 10060; 87070; 99283; A9270-GY; J3490

== ENCOUNTER 2023-04-14 00:15 | Emergency (ER) | payer MEDICAID ==
[2023-04-14] MEDS ORDERED: Sodium Chloride 0.9% 10 ML Syringe FLUSH PRN (00:23)
[2023-04-14 00:32] VITALS: BP 157/85; PULSE 96
[2023-04-14 00:57] LABS: BASOPHILS PERCENT AUTO 0.6 % (0.0-1.0); EOSINOPHILS PERCENT AUTO 3.3 % (1.0-3.0); HEMOGLOBIN 15.8 g/dL (14.0-18.0); INR 1.1 (0.9-1.2); LYMPHOCYTES PERCENT AUTO 10.9 % (20.5-50.1); MEAN CORPUSCULAR HEMOGLOBIN 32.4 pg (27.0-34.0); MEAN CORPUSCULAR HGB CONC 35.1 g/dL (33.0-35.0); MEAN CORPUSCULAR VOLUME 92.2 fL (80-100); MONOCYTES PERCENT AUTO 12.7 % (2-8); NEUTROPHILS PERCENT AUTO 72.5 % (42.2-75.2); PLATELET COUNT,PLT 187 10^3/uL (150-450); PROTHROMBIN TIME 11.1 SEC (9.0-12.0); PTT,PARTIAL THROMBOPLSTIN TIME 25.9 SEC (22.0-34.0); RED BLOOD CELL COUNT 4.88 10^6/uL (4.6-6.2); WHITE BLOOD CELL COUNT,WBC 7.3 10^3/uL (5.0-10.0)
[2023-04-14 01:02] LABS: A/G RATIO 0.8; ALBUMIN 3.6 g/dL (3.4-5.0); ANION GAP 12.8 mEq/L (7-13); BILIRUBIN TOTAL 0.7 mg/dL (0.2-1.0); BUN/CREATININE RATIO 12.4 (No establ ref range); C-REACTIVE PROTEIN 0.75 ng/dL (<=0.30); CALCIUM 8.8 mg/dL (8.5-10.1); CREATININE 0.97 mg/dL (0.70-1.30); EST CRCL DRUG DOSING (CG) 99.3 mL/min; POTASSIUM,K 3.8 mmol/L (3.5-5.1); PROTEIN TOTAL,TP 8.4 g/dL (6.4-8.2)
[2023-04-14 01:03] LABS: LACTIC ACID 1.2 mmol/L (0.4-2.0)
[2023-04-14 01:20] LABS: INFLUENZA A NAA NEGATIVE (NEGATIVE); INFLUENZA B NAA NEGATIVE (NEGATIVE); RESPIRATORY SYNCYTIAL VIR NAA NEGATIVE (NEGATIVE)
[2023-04-14 01:23] LABS: CORONAVIRUS COVID-19 NAA POSITIVE (NEGATIVE)
[2023-04-14] MEDS ORDERED: Ketorolac 30 MG/ML SDV IVPUSH ONE (01:34)
[2023-04-14] MEDS ORDERED: Dexamethasone 4 MG/ML SDV IV ONE (01:34)
== END 2023-04-14 02:04 | disposition home or self-care (01) ==
LOC: DL.ED 00:15
DX: U07.1 COVID-19 (principal); I10 Essential (primary) hypertension; E11.9 Type 2 diabetes mellitus without complications; E66.9 Obesity, unspecified; Z86.16 Personal history of COVID-19; Z79.84 Long term (current) use of oral hypoglycemic drugs; Z79.4 Long term (current) use of insulin; Z79.899 Other long term (current) drug therapy; Z68.42 Body mass index [BMI] 45.0-49.9, adult
CPT/HCPCS: 0241U; 36415; 71045; 80053; 83605; 83880; 84484; 85025; 85379; 85610; 85730; 86140; 93005; 93010; 96374; 96375; 99284; 99285-25; J1100; J1885; J3490

== ENCOUNTER 2023-11-15 01:15 | Emergency (ER) | payer MEDICAID ==
[2023-11-15 01:50] VITALS: BP 172/87; PULSE 67
[2023-11-15] MEDS: Fluorescein 1 MG Ophth Strip EYELF ONE (02:06)
[2023-11-15] MEDS: Sulfacetamide 10% Ophth Soln 15 ML Bottle EYELF ONE (02:08)
== END 2023-11-15 02:20 | disposition home or self-care (01) ==
LOC: DL.ED 01:15
DX: H10.9 Unspecified conjunctivitis (principal); I10 Essential (primary) hypertension; E11.9 Type 2 diabetes mellitus without complications; Z86.16 Personal history of COVID-19; Z79.899 Other long term (current) drug therapy; Z79.890 Hormone replacement therapy; Z79.4 Long term (current) use of insulin
CPT/HCPCS: 99283; A9270; 99282

== ENCOUNTER 2024-02-08 18:52 | Emergency (ER) | payer MEDICAID ==
[2024-02-08 19:18] VITALS: BP 140/88; PULSE 68
== END 2024-02-08 19:50 | disposition home or self-care (01) ==
LOC: DL.ED 18:52
DX: T63.441A Toxic effect of venom of bees, accidental (unintentional), initial encounter (principal); I10 Essential (primary) hypertension; E11.9 Type 2 diabetes mellitus without complications; Z86.16 Personal history of COVID-19; Z90.49 Acquired absence of other specified parts of digestive tract; Z79.84 Long term (current) use of oral hypoglycemic drugs; Z79.899 Other long term (current) drug therapy; Z79.4 Long term (current) use of insulin; Z79.890 Hormone replacement therapy
CPT/HCPCS: 99282

== ENCOUNTER 2024-02-29 01:28 | Emergency (ER) | payer MEDICAID ==
[2024-02-29] MEDS: Tetracaine HCl/PF 0.5% 4 ML Bottle EYERT ONE (03:15)
[2024-02-29] MEDS: Fluorescein 1 MG Ophth Strip EYERT ONE (03:15)
[2024-02-29] MEDS: Sulfacetamide 10% Ophth Soln 15 ML Bottle EYERT ONE (03:33)
[2024-02-29] MEDS: Take Home: Acetaminophen/HYDROcodone 325-5 MG, 5 Tab Pack PO ONE (03:34)
[2024-02-29 03:44] VITALS: BP 145/68; PULSE 70
== END 2024-02-29 03:37 | disposition home or self-care (01) ==
LOC: DL.ED 01:28
DX: H10.9 Unspecified conjunctivitis (principal); I10 Essential (primary) hypertension; J45.909 Unspecified asthma, uncomplicated; E11.9 Type 2 diabetes mellitus without complications; Z86.16 Personal history of COVID-19; Z90.49 Acquired absence of other specified parts of digestive tract; Z79.4 Long term (current) use of insulin; Z79.899 Other long term (current) drug therapy
CPT/HCPCS: 99283; A9270-GY; J3490

== ENCOUNTER 2024-03-05 19:37 | Emergency (ER) | payer MEDICAID ==
[2024-03-05] MEDS ORDERED: Sodium Chloride 0.9% 10 ML Syringe FLUSH PRN (19:48)
[2024-03-05] MEDS ORDERED: Naloxone 2 MG/2 ML Syringe IVPUSH PRN (19:51)
[2024-03-05] MEDS ORDERED: Carboxymethylcellulose Sodium 1% Ophth Gel 0.4 ML UD EYEBOTH PRN (19:53)
[2024-03-05 19:57] VITALS: BP 140/102; PULSE 69
[2024-03-05] MEDS: fentaNYL 100 MCG/2 ML SDV IVPUSH ONE ×2 (20:24→21:05)
[2024-03-05 20:26] LABS: HEMATOCRIT 45.6 % (40.0-54.0); HEMOGLOBIN 15.8 g/dL (14.0-18.0); MEAN CORPUSCULAR HEMOGLOBIN 32.8 pg (27.0-34.0); MEAN CORPUSCULAR HGB CONC 34.6 g/dL (33.0-35.0); MEAN CORPUSCULAR VOLUME 94.6 fL (80-100); PLATELET COUNT,PLT 207 10^3/uL (150-450); RED BLOOD CELL COUNT 4.82 10^6/uL (4.6-6.2); WHITE BLOOD CELL COUNT,WBC 8.7 10^3/uL (5.0-10.0)
[2024-03-05] MEDS: Lactated Ringers 1,000 ML IV SCH (20:26)
[2024-03-05 20:28] LABS: BASOPHILS PERCENT AUTO 0.6 % (0.0-1.0); EOSINOPHILS PERCENT AUTO 2.9 % (1.0-3.0); LYMPHOCYTES PERCENT AUTO 37.1 % (20.5-50.1); MONOCYTES PERCENT AUTO 8.1 % (2-8); NEUTROPHILS PERCENT AUTO 51.3 % (42.2-75.2)
[2024-03-05] MEDS: Diphtheria,Pertussis(Acell),Tetanus Vaccine 0.5 ML Syringe IM ONE (20:31)
[2024-03-05] MEDS: Fluorescein 1 MG Ophth Strip ONE (20:33)
[2024-03-05] MEDS: Fluorescein 1 MG Ophth Strip EYEBOTH ONE (20:33)
[2024-03-05] MEDS: Proparacaine 0.5% Ophth Soln 15 ML Bottle EYEBOTH ONE (20:37)
[2024-03-05 20:45] LABS: A/G RATIO 0.8; ALANINE AMINOTRANSFERASE,ALT 50 U/L (16-63); ALBUMIN 3.7 g/dL (3.4-5.0); ALKALINE PHOSPHATASE 87 U/L (46-116); ANION GAP 11.9 mEq/L (7-13); ASPARTATE AMNIOTRANSFERASE,AST 33 U/L (15-37); BILIRUBIN TOTAL 0.9 mg/dL (0.2-1.0); BLOOD UREA NITROGEN,BUN 15 mg/dL (7-18); BUN/CREATININE RATIO 14.6 (No establ ref range); CALCIUM 9.7 mg/dL (8.5-10.1); CARBON DIOXIDE,CO2 29 mmol/L (21-32); CHLORIDE,CL 103 mmol/L (98-107); CREATINE KINASE,CK 166 U/L (39-308); CREATININE 1.03 mg/dL (0.70-1.30); ESTIMATED GFR 91 mL/min (>=60); GLUCOSE RANDOM 164 mg/dL (70-99); POTASSIUM,K 3.9 mmol/L (3.5-5.1); PROTEIN TOTAL,TP 8.5 g/dL (6.4-8.2); SODIUM,NA 140 mmol/L (136-145)
[2024-03-05] MEDS ORDERED: Bacitracin Oint 1 GM U/D Packet TOP ONE (20:52)
[2024-03-05 21:03] LABS: EOSINOPHILS PERCENT MAN 4 % (1-3); LYMPHOCYTES PERCENT MAN 34 % (20-50); MONOCYTES PERCENT MAN 7 % (2-8); SEG NEUTROPHILS PERCENT MAN 55 % (42-75)
[2024-03-05] MEDS: Bacitracin Oint 1 GM U/D Packet ONE (22:04)
== END 2024-03-05 22:08 | disposition home or self-care (01) ==
LOC: DL.ED 19:37
DX: T23.201A Burn of second degree of right hand, unspecified site, initial encounter (principal); T23.202A Burn of second degree of left hand, unspecified site, initial encounter; I10 Essential (primary) hypertension; E11.9 Type 2 diabetes mellitus without complications; W40.1XXA Explosion of explosive gases, initial encounter; Z79.4 Long term (current) use of insulin; Z79.899 Other long term (current) drug therapy; Z86.16 Personal history of COVID-19; Z90.49 Acquired absence of other specified parts of digestive tract
CPT/HCPCS: 16000; 36415; 71046; 80053; 82550; 85025; 90471; 90715; 96361; 96374; 96376; 99284; A9270; J3010; J7120; J3490

== ENCOUNTER 2024-03-21 22:25 | Emergency (ER) | payer MEDICAID ==
[2024-03-21 23:57] VITALS: BP 146/83; PULSE 69
[2024-03-22] MEDS: cefTRIAXone 1 GM, Lidocaine 1% 2.1 ML IM ONE (01:03)
[2024-03-22] MEDS: Ketorolac 30 MG/ML SDV IM ONE (01:03)
== END 2024-03-22 01:13 | disposition home or self-care (01) ==
LOC: DL.ED 22:25
DX: K02.9 Dental caries, unspecified (principal); I10 Essential (primary) hypertension; J45.909 Unspecified asthma, uncomplicated; E11.9 Type 2 diabetes mellitus without complications; Z86.16 Personal history of COVID-19; Z79.4 Long term (current) use of insulin; Z79.84 Long term (current) use of oral hypoglycemic drugs; Z79.899 Other long term (current) drug therapy; Z90.49 Acquired absence of other specified parts of digestive tract
CPT/HCPCS: 96372; 99282; J0696; J1885; J3490

== ENCOUNTER 2024-08-15 11:33 | Emergency (ER) | payer MEDICAID ==
[2024-08-15 11:50] VITALS: BP 111/63; PULSE 63
== END 2024-08-15 11:58 | disposition home or self-care (01) ==
LOC: DL.ED 11:33
DX: M62.838 Other muscle spasm (principal); I10 Essential (primary) hypertension; J45.909 Unspecified asthma, uncomplicated; E11.9 Type 2 diabetes mellitus without complications; Z86.16 Personal history of COVID-19; Z90.49 Acquired absence of other specified parts of digestive tract; Z79.4 Long term (current) use of insulin; Z79.51 Long term (current) use of inhaled steroids; Z79.84 Long term (current) use of oral hypoglycemic drugs; Z79.890 Hormone replacement therapy; Z79.899 Other long term (current) drug therapy
CPT/HCPCS: 99283; 99284

== ENCOUNTER 2024-10-14 20:54 | Emergency (ER) | payer MEDICAID ==
[2024-10-14 21:38] VITALS: BP 122/63; PULSE 71
== END 2024-10-14 22:16 | disposition home or self-care (01) ==
LOC: DL.ED 20:54
DX: M72.2 Plantar fascial fibromatosis (principal); I10 Essential (primary) hypertension; E11.9 Type 2 diabetes mellitus without complications; M19.90 Unspecified osteoarthritis, unspecified site; J45.909 Unspecified asthma, uncomplicated; Z79.899 Other long term (current) drug therapy; Z79.4 Long term (current) use of insulin; Z79.890 Hormone replacement therapy; Z79.84 Long term (current) use of oral hypoglycemic drugs; Z86.16 Personal history of COVID-19; Z90.49 Acquired absence of other specified parts of digestive tract
CPT/HCPCS: 73630-RT; 99283

== ENCOUNTER 2024-11-11 21:16 | Emergency (ER) | payer MEDICAID ==
[2024-11-11 21:32] VITALS: BP 140/62; PULSE 57
== END 2024-11-11 21:32 | disposition left against medical advice (07) ==
LOC: DL.ED 21:16
DX: Z53.21 Procedure and treatment not carried out due to patient leaving prior to being seen by health care provider (principal)
CPT/HCPCS: 82947

== ENCOUNTER 2024-12-03 22:58 | Emergency (ER) | payer MEDICAID ==
[2024-12-03 23:15] VITALS: BP 167/99; PULSE 75
[2024-12-03] MEDS: Orphenadrine 60 MG/2 ML Inj IM ONE (23:35)
[2024-12-03] MEDS: Ketorolac 30 MG/ML SDV IM ONE (23:36)
[2024-12-04] MEDS: Acetaminophen/HYDROcodone 325-5 MG Tab PO ONE (00:14)
[2024-12-04] MEDS: Take Home: Acetaminophen/HYDROcodone 325-5 MG, 5 Tab Pack PO ONE (00:23)
== END 2024-12-04 00:55 | disposition home or self-care (01) ==
LOC: DL.ED 22:58
DX: M47.817 Spondylosis without myelopathy or radiculopathy, lumbosacral region (principal); I10 Essential (primary) hypertension; J45.909 Unspecified asthma, uncomplicated; E11.9 Type 2 diabetes mellitus without complications; Z86.16 Personal history of COVID-19; Z79.4 Long term (current) use of insulin; Z79.84 Long term (current) use of oral hypoglycemic drugs; Z79.899 Other long term (current) drug therapy
CPT/HCPCS: 72100; 96372; 99283; A9270-GY; J1885; J2360

== ENCOUNTER 2025-03-25 21:23 | Emergency (ER) | payer MEDICAID ==
[2025-03-25] MEDS: Take Home: Lidocaine 2% Viscous Solution 15 ML UD, 2 Cup Pack PO ONE (22:06)
[2025-03-25] MEDS: Amoxicillin/Clavulanate K 875-125 MG Tab PO ONE (22:06)
[2025-03-25 22:15] VITALS: BP 156/85; PULSE 78
== END 2025-03-25 22:13 | disposition home or self-care (01) ==
LOC: DL.ED 21:23
DX: K02.9 Dental caries, unspecified (principal); I10 Essential (primary) hypertension; J45.909 Unspecified asthma, uncomplicated; E11.9 Type 2 diabetes mellitus without complications; Z86.16 Personal history of COVID-19; Z90.49 Acquired absence of other specified parts of digestive tract; Z79.4 Long term (current) use of insulin; Z79.84 Long term (current) use of oral hypoglycemic drugs; Z79.890 Hormone replacement therapy; Z79.899 Other long term (current) drug therapy
CPT/HCPCS: 93010; 99283; 99285; A9270-GY

== ENCOUNTER 2025-05-24 22:23 | Emergency (ER) | payer MEDICAID ==
[2025-05-24] MEDS: Ketorolac 30 MG/ML SDV IM ONE (23:20)
[2025-05-25 00:27] VITALS: BP 141/77; PULSE 77
== END 2025-05-25 00:29 | disposition home or self-care (01) ==
LOC: DL.ED 22:23
DX: S20.211A Contusion of right front wall of thorax, initial encounter (principal); E11.9 Type 2 diabetes mellitus without complications; J45.909 Unspecified asthma, uncomplicated; I10 Essential (primary) hypertension; Z79.4 Long term (current) use of insulin; Z79.899 Other long term (current) drug therapy; Z79.84 Long term (current) use of oral hypoglycemic drugs; Z90.49 Acquired absence of other specified parts of digestive tract; Z86.16 Personal history of COVID-19; W01.10XA Fall on same level from slipping, tripping and stumbling with subsequent striking against unspecified object, initial encounter; Y92.009 Unspecified place in unspecified non-institutional (private) residence as the place of occurrence of the external cause
CPT/HCPCS: 71101; 96372; 99283; J1885